=== PATIENT | female | born 1995 | race Caucasian/White ===

== ENCOUNTER 2016-08-20 10:40 | Emergency (ER) | payer MEDICAID ==
[2016-08-20] MEDS ORDERED: ACETAMINOPHEN 325 MG TAB ONE (10:51)
[2016-08-20] MEDS ORDERED: SODIUM CHLORIDE 0.9% 2,000 ML ONE (12:06)
[2016-08-20] MEDS ORDERED: Ibuprofen 400 MG TAB ONE (12:07)
[2016-08-20] MEDS ORDERED: CEFTRIAXONE 1 GM VIAL ONE (14:44)
[2016-08-20] MEDS ORDERED: SODIUM CHLORIDE 0.9% 100 ML IV ONE (14:49)
== END 2016-08-20 16:05 | disposition home or self-care (01) ==
LOC: ER 10:40
DX: N10 Acute pyelonephritis (principal)
CPT/HCPCS: 36415; 70450; 71020; 87077; 87186; 96361; 96365; 96366